=== PATIENT | female | born 1960 | race Two or more races ===

== ENCOUNTER 2016-10-16 20:00 | Inpatient (IN) | payer OTHER ==
[~2016-10-16] VITALS: Ht 154.9 cm; Wt 79.8 kg
[2016-10-16 21:40] VITALS: BP 157/64
[2016-10-16] MEDS ORDERED: Z GUARD REMEDY 2 OZ OINT TP PRN (22:00)
[2016-10-16] MEDS ORDERED: MAG HYDROX/AL HYDROX/SIMETH 30 ML UDC PO PRN (22:00)
[2016-10-16] MEDS ORDERED: MAGNESIUM HYDROXIDE 30 ML UDC PO PRN (22:00)
[2016-10-16] MEDS ORDERED: MORPHINE SULFATE INJ 2 MG/ML DISP.SYRIN IV PRN (22:00)
[2016-10-16] MEDS ORDERED: ZOLPIDEM TARTRATE 5 MG TABLET PO PRN (22:00)
[2016-10-16 22:21] LABS: BASOPHILS % (AUTO) 0.3 % (0.0-2.0); DIFF TOTAL % 100 %; EOSINOPHILS % (AUTO) 0.6 % (0.0-6.0); HEMATOCRIT 24 % (33-45); HEMOGLOBIN 8.1 g/dL (11.5-14.8); LYMPHOCYTES # (AUTO) 0.9 /CMM (0.8-4.8); LYMPHOCYTES % (AUTO) 11.9 % (20.0-44.0); MEAN CORPUSCULAR HEMOGLOBIN 29 PG (26.0-33.0); MEAN CORPUSCULAR HGB CONC 34 g/dl (31.0-36.0); MEAN CORPUSCULAR VOLUME 87 fL (82-100); MONOCYTES # (AUTO) 0.6 /CMM (0.1-1.30); MONOCYTES % (AUTO) 7.5 % (2.0-12.0); NEUTROPHILS # (AUTO) 6.3 /CMM (1.8-8.9); NEUTROPHILS % (AUTO) 79.7 % (43.0-81.0); PLATELET COUNT (AUTO) 277 /CMM (150-450); RED BLOOD CELL COUNT(AUTO) 2.76 MIL/uL (4.0-5.2)
[2016-10-16] MEDS ORDERED: CARV12.5 PO (22:27)
[2016-10-16] MEDS ORDERED: BUPR100T6 PO (22:27)
[2016-10-16] MEDS ORDERED: ASPI-605 PO (22:27)
[2016-10-16] MEDS ORDERED: ATOR40TA PO (22:27)
[2016-10-16] MEDS ORDERED: BENA40TA67 PO (22:27)
[2016-10-16] MEDS ORDERED: GLIM4TAB PO (22:27)
[2016-10-16] MEDS ORDERED: GABA-534 PO (22:27)
[2016-10-16] MEDS ORDERED: CHLO25TA11 PO (22:27)
[2016-10-16 22:31] LABS: CALCIUM, SERUM 8.2 mg/dL (8.5-10.1); CREATININE 3.4 mg/dL (0.6-1.3); POTASSIUM 5.2 mmol/L (3.5-5.1)
[2016-10-16 22:32] LABS: INR 0.95 (0.87-1.13); PROTHROMBIN TIME 10.3 SECS (9.5-12.7)
[2016-10-17] VITALS (8 sets, daily range): BP systolic 93–144; BP diastolic 46–74
[2016-10-17] MEDS ORDERED: IV SET PRIMARY PUMP SET 1 EA INFUS.SET MC ONE (01:53)
[2016-10-17] MEDS ORDERED: IV NS 0.9% 1,000 ML ONE (01:53)
[2016-10-17] MEDS ORDERED: SODIUM POLYSTYRENE SULFONATE 15 G/60 ML BOTTLE PO ONE (02:00)
[2016-10-17] MEDS ORDERED: ALBUTEROL FS 2.5 MG/3 ML VIAL.NEB NEB PRN (02:00)
[2016-10-17] MEDS ORDERED: DEXTROSE 50%-WATER 50 ML DISP.SYRIN IV PRN (02:00)
[2016-10-17] MEDS ORDERED: SODIUM POLYSTYRENE SULFONATE 15 G/60 ML BOTTLE ONE (02:02)
[2016-10-17] MEDS: IV NS 0.9% 1,000 ML IV PRN ×2 (02:21→21:17)
[2016-10-17] MEDS ORDERED: ACETAMINOPHEN 325 MG TABLET ONE (05:10)
[2016-10-17] MEDS: ACETAMINOPHEN 325 MG TABLET PO PRN ×2 (05:13→15:23)
[2016-10-17] MEDS: BLOOD SUGAR DIAGNOSTIC 1 EACH STRIP VI SCH ×4 (06:51→21:16)
[2016-10-17] MEDS: INSULIN REGULAR, HUMAN 100 UNIT/ML 3 ML VIAL SQ PRN ×2 (06:54→17:21)
[2016-10-17 08:11] LABS: CALCIUM, SERUM 7.3 mg/dL (8.5-10.1); CREATININE 3.5 mg/dL (0.6-1.3); PHOSPHORUS 3.8 mg/dL (2.5-4.9); POTASSIUM 4.5 mmol/L (3.5-5.1)
[2016-10-17 08:54] LABS: MONOCYTES # (AUTO) 0.5 /CMM (0.1-1.30)
[2016-10-17] MEDS: PANTOPRAZOLE 40 MG TABLET.DR PO SCH (08:54)
[2016-10-17 08:59] LABS: HEMATOCRIT 20 % (33-45); MEAN CORPUSCULAR HEMOGLOBIN 30 PG (26.0-33.0); MEAN CORPUSCULAR VOLUME 88 fL (82-100); WHITE BLOOD COUNT (AUTO) 6.8 K/uL (4.3-11.0)
[2016-10-17 09:00] LABS: BASOPHILS % (AUTO) 0.2 % (0.0-2.0); DIFF TOTAL % 100 %; EOSINOPHILS % (AUTO) 0.2 % (0.0-6.0); LYMPHOCYTES # (AUTO) 0.7 /CMM (0.8-4.8); LYMPHOCYTES % (AUTO) 10.3 % (20.0-44.0); MEAN CORPUSCULAR HGB CONC 34 g/dl (31.0-36.0); MONOCYTES % (AUTO) 7.6 % (2.0-12.0); NEUTROPHILS # (AUTO) 5.5 /CMM (1.8-8.9); NEUTROPHILS % (AUTO) 81.7 % (43.0-81.0); PLATELET COUNT (AUTO) 210 /CMM (150-450)
[2016-10-17] MEDS ORDERED: buPROPion SR 100 MG TABLET.ER PO SCH (09:00)
[2016-10-17] MEDS ORDERED: HEPARIN SODIUM, PORCINE 5000 UNITS/1 ML VIAL SQ SCH (09:00)
[2016-10-17 09:03] LABS: HEMOGLOBIN 6.8 g/dL (11.5-14.8)
[2016-10-17] MEDS: ASPIRIN EC 81 MG TABLET.DR PO SCH (09:43)
[2016-10-17] MEDS: CARVEDILOL 12.5 MG TABLET PO SCH ×2 (09:54→17:27)
[2016-10-17] MEDS: GABAPENTIN 300 MG CAPSULE PO SCH ×3 (09:54→17:27)
[2016-10-17 11:12] LABS: RETICULOCYTE COUNT 1.6 % (0.6-2.5)
[2016-10-17 11:27] LABS: THYROID STIMULATING HORMONE 0.856 uIU/mL (0.358-3.74); URIC ACID 6.5 mg/dL (2.6-7.2)
[2016-10-17 12:08] LABS: ERYTHROCYTE SEDIMENTATION RATE > 140 MM/HR (0-30)
[2016-10-17] MEDS ORDERED: BLOOD IV SET 1 EA INFUS.SET MC ONE (12:52)
[2016-10-17] MEDS ORDERED: IV NS 0.9% 250 ML IV ONE (12:52)
[2016-10-17] MEDS: buPROPion SR 100 MG TABLET.ER PO SCH (13:00)
[2016-10-17] MEDS ORDERED: SECONDARY IV SET 1 EA INFUS.SET MC ONE (15:18)
[2016-10-17] MEDS: SOD FERRIC GLUC 125 MG in IV NS 0.9% 100 ML IV SCH (15:21)
[2016-10-17] MEDS: ATORVASTATIN 40 MG TABLET PO SCH (21:12)
[2016-10-18] VITALS (8 sets, daily range): BP systolic 122–153; BP diastolic 51–83
[2016-10-18] MEDS: ACETAMINOPHEN 325 MG TABLET PO PRN (00:03)
[2016-10-18] MEDS: BLOOD SUGAR DIAGNOSTIC 1 EACH STRIP VI SCH ×4 (06:55→21:37)
[2016-10-18 07:49] LABS: CALCIUM, SERUM 7.5 mg/dL (8.5-10.1); PHOSPHORUS 5.1 mg/dL (2.5-4.9); POTASSIUM 4.2 mmol/L (3.5-5.1)
[2016-10-18 07:57] LABS: BASOPHILS % (AUTO) 0.4 % (0.0-2.0); DIFF TOTAL % 100 %; EOSINOPHILS # (AUTO) 0.1 /CMM (0.0-0.7); HEMATOCRIT 27 % (33-45); LYMPHOCYTES # (AUTO) 1.2 /CMM (0.8-4.8); LYMPHOCYTES % (AUTO) 15.6 % (20.0-44.0); MEAN CORPUSCULAR HEMOGLOBIN 29 PG (26.0-33.0); MEAN CORPUSCULAR HGB CONC 33 g/dl (31.0-36.0); MEAN CORPUSCULAR VOLUME 87 fL (82-100); MONOCYTES # (AUTO) 0.8 /CMM (0.1-1.30); MONOCYTES % (AUTO) 11.4 % (2.0-12.0); NEUTROPHILS # (AUTO) 5.2 /CMM (1.8-8.9); NEUTROPHILS % (AUTO) 70.6 % (43.0-81.0); PLATELET COUNT (AUTO) 185 /CMM (150-450); RED BLOOD CELL COUNT(AUTO) 3.12 MIL/uL (4.0-5.2); WHITE BLOOD COUNT (AUTO) 7.4 K/uL (4.3-11.0)
[2016-10-18 08:09] LABS: VIT D, 25-HYDROXY 6.4 ng/mL (30.0-100.0)
[2016-10-18] MEDS: PANTOPRAZOLE 40 MG TABLET.DR PO SCH (08:55)
[2016-10-18] MEDS: ASPIRIN EC 81 MG TABLET.DR PO SCH (08:56)
[2016-10-18] MEDS: GABAPENTIN 300 MG CAPSULE PO SCH ×3 (08:56→17:58)
[2016-10-18] MEDS: CARVEDILOL 12.5 MG TABLET PO SCH ×2 (08:56→17:58)
[2016-10-18] MEDS ORDERED: SECONDARY IV SET 1 EA INFUS.SET MC ONE (09:00)
[2016-10-18] MEDS ORDERED: Magnesium 1GM/D5W 100ML PREMIX 100 ML IV SCH ×2 (09:00→12:00)
[2016-10-18] MEDS ORDERED: HYDR-552 PO (11:13)
[2016-10-18] MEDS: HYDROCODONE/APAP 5/325MG 1 EACH TABLET PO PRN ×2 (12:29→23:12)
[2016-10-18] MEDS: SOD FERRIC GLUC 125 MG in IV NS 0.9% 100 ML IV SCH (14:37)
[2016-10-18] MEDS: buPROPion SR 100 MG TABLET.ER PO SCH ×2 (17:00→17:58)
[2016-10-18] MEDS: ATORVASTATIN 40 MG TABLET PO SCH (21:39)
[2016-10-18] MEDS: *INSULIN REGULAR(HUMULIN R)HUM 100 UNIT/ML VIAL SQ PRN (21:44)
[2016-10-18] MEDS: IV NS 0.9% 1,000 ML IV PRN (21:45)
[2016-10-19] VITALS (10 sets, daily range): BP systolic 113–189; BP diastolic 49–94
[2016-10-19] MEDS: PANTOPRAZOLE 40 MG TABLET.DR PO SCH (06:44)
[2016-10-19] MEDS: BLOOD SUGAR DIAGNOSTIC 1 EACH STRIP VI SCH ×4 (06:45→22:39)
[2016-10-19 07:23] LABS: BASOPHILS % (AUTO) 0.3 % (0.0-2.0); DIFF TOTAL % 100 %; EOSINOPHILS # (AUTO) 0.2 /CMM (0.0-0.7); HEMATOCRIT 25 % (33-45); HEMOGLOBIN 8.5 g/dL (11.5-14.8); LYMPHOCYTES % (AUTO) 12.9 % (20.0-44.0); MEAN CORPUSCULAR HEMOGLOBIN 30 PG (26.0-33.0); MEAN CORPUSCULAR HGB CONC 34 g/dl (31.0-36.0); MEAN CORPUSCULAR VOLUME 87 fL (82-100); MONOCYTES % (AUTO) 12.2 % (2.0-12.0); NEUTROPHILS # (AUTO) 5.8 /CMM (1.8-8.9); NEUTROPHILS % (AUTO) 72.6 % (43.0-81.0); PLATELET COUNT (AUTO) 189 /CMM (150-450); RED BLOOD CELL COUNT(AUTO) 2.87 MIL/uL (4.0-5.2)
[2016-10-19 07:43] LABS: ALBUMIN 1.6 g/dL (3.4-5.0); BILIRUBIN,TOTAL 0.2 mg/dL (0.2-1.0); CALCIUM, SERUM 7.6 mg/dL (8.5-10.1); CREATININE 4.2 mg/dL (0.6-1.3); PHOSPHORUS 4.8 mg/dL (2.5-4.9); POTASSIUM 4.6 mmol/L (3.5-5.1); TOTAL PROTEIN, SERUM 5.5 g/dL (6.4-8.2)
[2016-10-19] MEDS: GABAPENTIN 300 MG CAPSULE PO SCH ×4 (09:17→17:00)
[2016-10-19] MEDS: ASPIRIN EC 81 MG TABLET.DR PO SCH (09:17)
[2016-10-19] MEDS: buPROPion SR 100 MG TABLET.ER PO SCH ×3 (09:17→17:00)
[2016-10-19] MEDS: CARVEDILOL 12.5 MG TABLET PO SCH ×3 (09:17→17:00)
[2016-10-19] MEDS: HYDROCODONE/APAP 5/325MG 1 EACH TABLET PO PRN (09:20)
[2016-10-19 09:39] LABS: CREATINE KINASE MB 0.6 ng/mL (0-3.6)
[2016-10-19] MEDS ORDERED: SECONDARY IV SET 1 EA INFUS.SET MC ONE (13:45)
[2016-10-19] MEDS: ONDANSETRON HCL/PF 4 MG/2 ML VIAL IVP PRN (13:56)
[2016-10-19] MEDS: SOD FERRIC GLUC 125 MG in IV NS 0.9% 100 ML IV SCH (14:00)
[2016-10-19] MEDS ORDERED: BLOOD IV SET 1 EA INFUS.SET MC ONE (15:27)
[2016-10-19] MEDS ORDERED: IV NS 0.9% 250 ML IV ONE (15:28)
[2016-10-19] MEDS: *INSULIN REGULAR(HUMULIN R)HUM 100 UNIT/ML VIAL SQ PRN ×2 (16:37→22:42)
[2016-10-19] MEDS ORDERED: CLONIDINE HCL 0.1 MG TABLET PO ONE (17:30)
[2016-10-19] MEDS ORDERED: diphenhydrAMINE HCL 25 MG CAPSULE PO ONE (17:30)
[2016-10-19] MEDS: ATORVASTATIN 40 MG TABLET PO SCH (20:56)
[2016-10-20 04:00] VITALS: BP 152/83
[2016-10-20] MEDS: IV NS 0.9% 1,000 ML IV PRN (04:36)
[2016-10-20] MEDS: BLOOD SUGAR DIAGNOSTIC 1 EACH STRIP VI SCH ×4 (06:39→21:38)
[2016-10-20] MEDS: PANTOPRAZOLE 40 MG TABLET.DR PO SCH (07:30)
[2016-10-20 08:00] VITALS: BP 147/70
[2016-10-20] MEDS: CARVEDILOL 12.5 MG TABLET PO SCH ×2 (08:30→17:34)
[2016-10-20] MEDS: ACETAMINOPHEN 325 MG TABLET PO PRN (08:32)
[2016-10-20] MEDS: ONDANSETRON HCL/PF 4 MG/2 ML VIAL IVP PRN (08:42)
[2016-10-20] MEDS: GABAPENTIN 300 MG CAPSULE PO SCH ×3 (08:57→17:00)
[2016-10-20] MEDS: buPROPion SR 100 MG TABLET.ER PO SCH ×2 (08:57→17:00)
[2016-10-20] MEDS: ASPIRIN EC 81 MG TABLET.DR PO SCH (08:57)
[2016-10-20 10:39] LABS: *SPE ALBUMIN 1.8 g/dL (2.9-4.4)
[2016-10-20 13:17] LABS: PTH, INTACT 94 pg/mL (15-65)
[2016-10-20] MEDS: SOD FERRIC GLUC 125 MG in IV NS 0.9% 100 ML IV SCH ×2 (14:00→21:34)
[2016-10-20 16:00] VITALS: BP 134/69
[2016-10-20] MEDS: INSULIN REGULAR, HUMAN 100 UNIT/ML 3 ML VIAL SQ PRN (17:50)
[2016-10-20 20:00] VITALS: BP 157/76
[2016-10-20] MEDS ORDERED: SECONDARY IV SET 1 EA INFUS.SET MC ONE (21:28)
[2016-10-20] MEDS ORDERED: IV SET PRIMARY PUMP SET 1 EA INFUS.SET MC ONE (21:29)
[2016-10-20] MEDS: ATORVASTATIN 40 MG TABLET PO SCH (21:38)
[2016-10-20] MEDS: *INSULIN REGULAR(HUMULIN R)HUM 100 UNIT/ML VIAL SQ PRN (21:49)
[2016-10-21] MEDS: IV NS 0.9% 1,000 ML IV PRN ×2 (03:36→22:09)
[2016-10-21 04:00] VITALS: BP_SYST 134; BP_SYST 146; BP_DIAS 61; BP_DIAS 69
[2016-10-21 08:00] VITALS: BP 150/69
[2016-10-21] MEDS: buPROPion SR 100 MG TABLET.ER PO SCH ×2 (08:48→17:47)
[2016-10-21] MEDS: CARVEDILOL 12.5 MG TABLET PO SCH ×2 (08:49→17:48)
[2016-10-21] MEDS: PANTOPRAZOLE 40 MG TABLET.DR PO SCH (08:49)
[2016-10-21] MEDS: GABAPENTIN 300 MG CAPSULE PO SCH ×3 (08:49→17:47)
[2016-10-21] MEDS: ASPIRIN EC 81 MG TABLET.DR PO SCH (08:49)
[2016-10-21] MEDS: BLOOD SUGAR DIAGNOSTIC 1 EACH STRIP VI SCH ×4 (08:50→21:33)
[2016-10-21] MEDS: ACETAMINOPHEN 325 MG TABLET PO PRN (08:52)
[2016-10-21 12:32] LABS: BASOPHILS % (AUTO) 0.5 % (0.0-2.0); DIFF TOTAL % 100 %; EOSINOPHILS % (AUTO) 0.5 % (0.0-6.0); HEMATOCRIT 28 % (33-45); HEMOGLOBIN 9.4 g/dL (11.5-14.8); LYMPHOCYTES # (AUTO) 0.6 /CMM (0.8-4.8); LYMPHOCYTES % (AUTO) 6.4 % (20.0-44.0); MEAN CORPUSCULAR HEMOGLOBIN 29 PG (26.0-33.0); MEAN CORPUSCULAR HGB CONC 34 g/dl (31.0-36.0); MEAN CORPUSCULAR VOLUME 87 fL (82-100); MONOCYTES # (AUTO) 0.8 /CMM (0.1-1.30); MONOCYTES % (AUTO) 8.5 % (2.0-12.0); NEUTROPHILS # (AUTO) 7.8 /CMM (1.8-8.9); NEUTROPHILS % (AUTO) 84.1 % (43.0-81.0); PLATELET COUNT (AUTO) 232 /CMM (150-450); RED BLOOD CELL COUNT(AUTO) 3.21 MIL/uL (4.0-5.2); WHITE BLOOD COUNT (AUTO) 9.3 K/uL (4.3-11.0)
[2016-10-21] MEDS: INSULIN REGULAR, HUMAN 100 UNIT/ML 3 ML VIAL SQ PRN (12:56)
[2016-10-21] MEDS ORDERED: SOD FERRIC GLUC 125 MG in IV NS 0.9% 100 ML IV SCH (14:00)
[2016-10-21 16:00] VITALS: BP 139/74
[2016-10-21 20:00] VITALS: BP 132/68
[2016-10-21] MEDS: ATORVASTATIN 40 MG TABLET PO SCH (21:32)
[2016-10-21] MEDS: *INSULIN REGULAR(HUMULIN R)HUM 100 UNIT/ML VIAL SQ PRN (21:35)
[2016-10-22] VITALS: BP 122/68
[2016-10-22 04:00] VITALS: BP 154/79
[2016-10-22 05:36] LABS: KETONES,URINE NEGATIVE (NEGATIVE); LEUKOCYTE ESTERASE ,URINE NEGATIVE (NEGATIVE)
[2016-10-22 05:42] LABS: BASOPHILS % (AUTO) 0.4 % (0.0-2.0); DIFF TOTAL % 100 %; EOSINOPHILS # (AUTO) 0.2 /CMM (0.0-0.7); EOSINOPHILS % (AUTO) 2.3 % (0.0-6.0); HEMATOCRIT 29 % (33-45); HEMOGLOBIN 9.7 g/dL (11.5-14.8); LYMPHOCYTES # (AUTO) 0.8 /CMM (0.8-4.8); LYMPHOCYTES % (AUTO) 9.4 % (20.0-44.0); MEAN CORPUSCULAR HEMOGLOBIN 29 PG (26.0-33.0); MEAN CORPUSCULAR HGB CONC 33 g/dl (31.0-36.0); MEAN CORPUSCULAR VOLUME 89 fL (82-100); MONOCYTES # (AUTO) 0.9 /CMM (0.1-1.30); NEUTROPHILS # (AUTO) 6.3 /CMM (1.8-8.9); NEUTROPHILS % (AUTO) 76.9 % (43.0-81.0); PLATELET COUNT (AUTO) 254 /CMM (150-450); WHITE BLOOD COUNT (AUTO) 8.2 K/uL (4.3-11.0)
[2016-10-22 05:46] LABS: CREATININE, URINE 55.7 MG/DL (30.0-125.0)
[2016-10-22 05:52] LABS: ADD UA MICROSCOPIC YES
[2016-10-22 05:54] LABS: ADD URINE CULTURE YES
[2016-10-22 05:54] LABS: CALCIUM, SERUM 7.8 mg/dL (8.5-10.1); CREATININE 4.4 mg/dL (0.6-1.3); PHOSPHORUS 4.6 mg/dL (2.5-4.9); POTASSIUM 4.7 mmol/L (3.5-5.1)
[2016-10-22] MEDS: BLOOD SUGAR DIAGNOSTIC 1 EACH STRIP VI SCH ×4 (06:26→21:32)
[2016-10-22] MEDS: INSULIN REGULAR, HUMAN 100 UNIT/ML 3 ML VIAL SQ PRN ×4 (06:29→21:33)
[2016-10-22 08:00] VITALS: BP 164/81
[2016-10-22] MEDS: ASPIRIN EC 81 MG TABLET.DR PO SCH (08:38)
[2016-10-22] MEDS: PANTOPRAZOLE 40 MG TABLET.DR PO SCH (08:38)
[2016-10-22] MEDS: buPROPion SR 100 MG TABLET.ER PO SCH ×2 (08:38→16:53)
[2016-10-22] MEDS: GABAPENTIN 300 MG CAPSULE PO SCH ×3 (08:38→16:52)
[2016-10-22] MEDS: CARVEDILOL 12.5 MG TABLET PO SCH ×2 (08:39→16:54)
[2016-10-22] MEDS ORDERED: IV NS 0.9% 1,000 ML IV ONE (11:30)
[2016-10-22 16:00] VITALS: BP 153/71
[2016-10-22 20:00] VITALS: BP 169/83
[2016-10-22] MEDS: hydrALAZINE HCL 25 MG TABLET PO PRN (21:32)
[2016-10-22] MEDS: ATORVASTATIN 40 MG TABLET PO SCH (21:32)
[2016-10-23 04:00] VITALS: BP 158/74
[2016-10-23] MEDS: BLOOD SUGAR DIAGNOSTIC 1 EACH STRIP VI SCH ×4 (06:33→22:18)
[2016-10-23 06:57] LABS: BASOPHILS % (AUTO) 0.4 % (0.0-2.0); DIFF TOTAL % 100 %; EOSINOPHILS # (AUTO) 0.3 /CMM (0.0-0.7); HEMATOCRIT 30 % (33-45); HEMOGLOBIN 9.7 g/dL (11.5-14.8); LYMPHOCYTES # (AUTO) 0.9 /CMM (0.8-4.8); LYMPHOCYTES % (AUTO) 10.5 % (20.0-44.0); MEAN CORPUSCULAR HEMOGLOBIN 29 PG (26.0-33.0); MEAN CORPUSCULAR HGB CONC 33 g/dl (31.0-36.0); MEAN CORPUSCULAR VOLUME 88 fL (82-100); MONOCYTES % (AUTO) 12.3 % (2.0-12.0); NEUTROPHILS # (AUTO) 6.2 /CMM (1.8-8.9); NEUTROPHILS % (AUTO) 73.8 % (43.0-81.0); PLATELET COUNT (AUTO) 304 /CMM (150-450); RED BLOOD CELL COUNT(AUTO) 3.35 MIL/uL (4.0-5.2); WHITE BLOOD COUNT (AUTO) 8.4 K/uL (4.3-11.0)
[2016-10-23] MEDS: PANTOPRAZOLE 40 MG TABLET.DR PO SCH ×2 (06:57→09:39)
[2016-10-23 07:07] LABS: CALCIUM, SERUM 7.9 mg/dL (8.5-10.1); CREATININE 4.5 mg/dL (0.6-1.3); PHOSPHORUS 4.3 mg/dL (2.5-4.9); POTASSIUM 4.5 mmol/L (3.5-5.1)
[2016-10-23 08:00] VITALS: BP 167/71
[2016-10-23] MEDS: buPROPion SR 100 MG TABLET.ER PO SCH ×2 (09:39→17:08)
[2016-10-23] MEDS: GABAPENTIN 300 MG CAPSULE PO SCH ×3 (09:39→17:08)
[2016-10-23] MEDS: ASPIRIN EC 81 MG TABLET.DR PO SCH (09:39)
[2016-10-23] MEDS: CARVEDILOL 12.5 MG TABLET PO SCH ×2 (09:40→17:08)
[2016-10-23] MEDS: INSULIN REGULAR, HUMAN 100 UNIT/ML 3 ML VIAL SQ PRN ×2 (12:46→22:19)
[2016-10-23 16:00] VITALS: BP 171/81
[2016-10-23 20:00] VITALS: BP 123/78
[2016-10-23] MEDS: ONDANSETRON HCL/PF 4 MG/2 ML VIAL IVP PRN (22:17)
[2016-10-23] MEDS: ATORVASTATIN 40 MG TABLET PO SCH (22:17)
[2016-10-24 04:00] VITALS: BP 152/80
[2016-10-24] MEDS: BLOOD SUGAR DIAGNOSTIC 1 EACH STRIP VI SCH ×4 (06:37→21:36)
[2016-10-24 07:28] LABS: BASOPHILS % (AUTO) 0.5 % (0.0-2.0); DIFF TOTAL % 100 %; EOSINOPHILS # (AUTO) 0.3 /CMM (0.0-0.7); HEMATOCRIT 30 % (33-45); HEMOGLOBIN 9.9 g/dL (11.5-14.8); LYMPHOCYTES # (AUTO) 0.9 /CMM (0.8-4.8); LYMPHOCYTES % (AUTO) 10.1 % (20.0-44.0); MEAN CORPUSCULAR HEMOGLOBIN 30 PG (26.0-33.0); MEAN CORPUSCULAR HGB CONC 33 g/dl (31.0-36.0); MEAN CORPUSCULAR VOLUME 89 fL (82-100); MONOCYTES # (AUTO) 1.1 /CMM (0.1-1.30); MONOCYTES % (AUTO) 12.4 % (2.0-12.0); NEUTROPHILS # (AUTO) 6.8 /CMM (1.8-8.9); PLATELET COUNT (AUTO) 321 /CMM (150-450); RED BLOOD CELL COUNT(AUTO) 3.37 MIL/uL (4.0-5.2); WHITE BLOOD COUNT (AUTO) 9.2 K/uL (4.3-11.0)
[2016-10-24 07:47] LABS: CALCIUM, SERUM 8.2 mg/dL (8.5-10.1); POTASSIUM 4.6 mmol/L (3.5-5.1)
[2016-10-24 08:00] VITALS: BP 180/82
[2016-10-24] MEDS: ASPIRIN EC 81 MG TABLET.DR PO SCH (09:23)
[2016-10-24] MEDS: buPROPion SR 100 MG TABLET.ER PO SCH ×2 (09:23→18:47)
[2016-10-24] MEDS: CARVEDILOL 12.5 MG TABLET PO SCH ×2 (09:23→18:47)
[2016-10-24] MEDS: GABAPENTIN 300 MG CAPSULE PO SCH ×3 (09:23→18:47)
[2016-10-24] MEDS: *INSULIN REGULAR(HUMULIN R)HUM 100 UNIT/ML VIAL SQ PRN (11:27)
[2016-10-24] MEDS: ONDANSETRON HCL/PF 4 MG/2 ML VIAL IVP PRN ×2 (11:41→14:42)
[2016-10-24 16:00] VITALS: BP 158/79
[2016-10-24 20:00] VITALS: BP 132/90
[2016-10-24] MEDS: ATORVASTATIN 40 MG TABLET PO SCH (21:36)
[2016-10-24] MEDS: INSULIN REGULAR, HUMAN 100 UNIT/ML 3 ML VIAL SQ PRN (21:39)
[2016-10-25 04:00] VITALS: BP_SYST 164; BP_SYST 166; BP_DIAS 81
[2016-10-25] MEDS: hydrALAZINE HCL 25 MG TABLET PO PRN (05:02)
[2016-10-25 07:27] LABS: BASOPHILS % (AUTO) 0.3 % (0.0-2.0); DIFF TOTAL % 100 %; EOSINOPHILS # (AUTO) 0.3 /CMM (0.0-0.7); EOSINOPHILS % (AUTO) 3.1 % (0.0-6.0); HEMATOCRIT 34 % (33-45); HEMOGLOBIN 11.1 g/dL (11.5-14.8); LYMPHOCYTES % (AUTO) 11.3 % (20.0-44.0); MEAN CORPUSCULAR HEMOGLOBIN 29 PG (26.0-33.0); MEAN CORPUSCULAR HGB CONC 32 g/dl (31.0-36.0); MEAN CORPUSCULAR VOLUME 89 fL (82-100); MONOCYTES # (AUTO) 0.9 /CMM (0.1-1.30); MONOCYTES % (AUTO) 10.3 % (2.0-12.0); NEUTROPHILS # (AUTO) 6.3 /CMM (1.8-8.9); PLATELET COUNT (AUTO) 360 /CMM (150-450); RED BLOOD CELL COUNT(AUTO) 3.86 MIL/uL (4.0-5.2); WHITE BLOOD COUNT (AUTO) 8.4 K/uL (4.3-11.0)
[2016-10-25] MEDS: BLOOD SUGAR DIAGNOSTIC 1 EACH STRIP VI SCH ×4 (07:30→22:12)
[2016-10-25 07:53] LABS: CALCIUM, SERUM 7.8 mg/dL (8.5-10.1); CREATININE 3.7 mg/dL (0.6-1.3); POTASSIUM 4.5 mmol/L (3.5-5.1)
[2016-10-25] MEDS: GABAPENTIN 300 MG CAPSULE PO SCH ×3 (09:08→17:30)
[2016-10-25] MEDS: buPROPion SR 100 MG TABLET.ER PO SCH ×2 (09:08→17:30)
[2016-10-25] MEDS: ASPIRIN EC 81 MG TABLET.DR PO SCH (09:08)
[2016-10-25] MEDS: CARVEDILOL 12.5 MG TABLET PO SCH ×2 (09:09→17:30)
[2016-10-25] MEDS: PANTOPRAZOLE 40 MG TABLET.DR PO SCH (09:09)
[2016-10-25] MEDS: INSULIN REGULAR, HUMAN 100 UNIT/ML 3 ML VIAL SQ PRN ×2 (11:56→22:13)
[2016-10-25 12:00] VITALS: BP 169/76
[2016-10-25 20:00] VITALS: BP 161/92
[2016-10-25] MEDS: ATORVASTATIN 40 MG TABLET PO SCH (21:24)
[2016-10-25] MEDS: HYDROCODONE/APAP 5/325MG 1 EACH TABLET PO PRN (21:25)
== END 2016-10-25 23:57 | disposition home or self-care (01) | DRG 342 ==
LOC: MEDSG1 21:23
PROVIDERS: ADMIT Internal Medicine; ATTEND Internal Medicine
PROC: 30233N1 Transfusion of Nonautologous Red Blood Cells into Peripheral Vein, Percutaneous Approach (ICD-10-PCS; principal; 2016-10-17)
DX: S82.145A Nondisplaced bicondylar fracture of left tibia, initial encounter for closed fracture (principal); N17.0 Acute kidney failure with tubular necrosis; E44.0 Moderate protein-calorie malnutrition; E11.22 Type 2 diabetes mellitus with diabetic chronic kidney disease; N18.4 Chronic kidney disease, stage 4 (severe); D62 Acute posthemorrhagic anemia; E11.621 Type 2 diabetes mellitus with foot ulcer; E87.5 Hyperkalemia; I12.9 Hypertensive chronic kidney disease with stage 1 through stage 4 chronic kidney disease, or unspecified chronic kidney disease; E78.5 Hyperlipidemia, unspecified; K21.9 Gastro-esophageal reflux disease without esophagitis; I25.10 Atherosclerotic heart disease of native coronary artery without angina pectoris; E66.9 Obesity, unspecified; D63.8 Anemia in other chronic diseases classified elsewhere; I73.9 Peripheral vascular disease, unspecified; W18.2XXA Fall in (into) shower or empty bathtub, initial encounter; Y92.002 Bathroom of unspecified non-institutional (private) residence as the place of occurrence of the external cause; Y93.E1 Activity, personal bathing and showering; Z79.4 Long term (current) use of insulin; E83.42 Hypomagnesemia; L97.509 Non-pressure chronic ulcer of other part of unspecified foot with unspecified severity; Z68.33 Body mass index [BMI] 33.0-33.9, adult
CPT/HCPCS: 36415; 70450-TC; 71010-TC; 73590-TC; 73700-TC; 76770-TC; 80048-TC; 80053-TC; 80061-TC; 81000-TC; 82306; 82378; 82550-TC; 82553-TC; 82570-TC; 82728-TC; 82746; 82962-TC; 83540-TC; 83615-TC; 83735-TC; 83970; 84100-TC; 84155; 84165; 84300-TC; 84443-TC; 84550-TC; 85025-TC; 85045-TC; 85610-TC; 85652-TC; 86850-TC; 86921-TC; 87081-TC; 87086-TC; 93307-TC; 94799-TC; 97001-TC; J1644; J1815; J2405; J2916; J3475; J7030; J7050; P9016-BL; Q0163; Z7610